=== PATIENT | female | born 1985 | race Caucasian/White ===

== ENCOUNTER → 2018-03-28 | Outpatient (CLI) | payer OTHER ==
--- NOTE | 2018-03-31 09:32 | USB ---
Reason for exam: clinical finding. History: Family history of breast cancer in maternal grandmother at age 60. Taking hormonal contraceptives beginning at age 16. Indicated problem(s): palpable abnormality in the left breast. Physical Findings: Nurse Summary: 2cm movable (nurse dw). US Breast BILAT Right complete breast ultrasound includes all four quadrants, the retroareolar region and axilla. Finding demonstrates no cystic or solid lesion seen. Left complete breast ultrasound includes all four quadrants, the retroareolar region and axilla. Finding demonstrates no cystic or solid lesion seen. No suspicious sonographic finding. Dense breast tissue is seen diffusely including the site of palpable abnormality. These results were verbally communicated with the patient and result sheet given to the patient on 03/28/18. ASSESSMENT: Negative, BI-RAD 1 RECOMMENDATION: Routine screening mammogram of both breasts at age 40. (41 or sooner if clinically indicated)
== END | disposition home or self-care (01) ==
LOC: RADUSWWP 15:28
PROVIDERS: ATTEND Internal Medicine
DX: N60.02 Solitary cyst of left breast (principal)

== ENCOUNTER → 2018-11-04 | Outpatient (CLI) | payer OTHER ==
--- NOTE | 2018-11-04 09:56 | US ---
EXAMINATION TYPE: US thyroid st tissue head/neck DATE OF EXAM: 11/04/2018 COMPARISON: MRI cervical spine December 10, 2014 CLINICAL HISTORY: E04.1 thyroid nodule, Right upper quadrant R10.11. thyroid nodule GLAND SIZE: Right Lobe: 5.4 x 1.9 x 2.0 cm Overall Parenchyma: homogenous Left Lobe: 5.1 x 1.4 x 1.6 cm Overall Parenchyma: homogeneous Isthmus Thickness: 0.2 cm NODULES RIGHT: # of nodules measured on right: 2 1. 1.9 X 1.1 x 1.1 cm mixed nodule at the mid pole with well-defined margins; . This nodule is gutierrez ler than wide and shows intranodular vascularity. Prior size: no prior 2. 0.8 X 0.6 x 0.6 cm mixed nodule at the lower pole with well-defined margins; . This nodule is wi bishop than tall and shows peripheral vascularity. Prior size: no prior LEFT: # of nodules measured on left: 0 ISTHMUS: # of nodules measured in the isthmus: 0 Bilateral neck scanned, no evidence of lymphadenopathy. There is homogeneous normal size thyroid with 1.9 cm mixed nodule seen in right thyroid laterally mid pole level and smaller mixed nodule seen posteriorly mid to lower pole level. Corresponding MRI 2015 only identifies 7 mm lateral T2 hyperintense nodule. IMPRESSION: A 1.9 cm mixed right thyroid nodule increased from 2015 MRI. Total points equals 5. (Taller greater t hook wide). TR4 lesion moderately suspicious. Recommendation: FNA advised.
--- NOTE | 2018-11-04 11:13 | US ---
EXAMINATION TYPE: US abdomen complete DATE OF EXAM: 11/04/2018 COMPARISON: NONE CLINICAL HISTORY: E04.1 thyroid nodule, Right upper quadrant R10.11. Nausea and vomiting after eating spicy foods, epigastric and RUQ pain EXAM MEASUREMENTS: Liver Length: 11.8 cm Gallbladder Wall: 0.2 cm CBD: 0.5 cm Spleen: 9.2 cm Right Kidney: 11.8 x 4.1 x 5.5 cm Left Kidney: 12.9 x 4.9 x 4.5 cm Pancreas: Obscured by bowel gas Liver: solid heterogenous hypoechoic area noted= 3.5 x 3.0 x 4.0cm Gallbladder: no evidence of stones Evidence for sonographic Baldwin's sign: no CBD: wnl Spleen: wnl Right Kidney: no evidence of hydronephrosis Left Kidney: wnl Upper IVC: wnl Abd Aorta: wnl The liver is homogenous. There is 3.5 cm slightly hypoechoic area possible lesion marked in the live r on image 29. The intrahepatic portion of the IVC and proximal abdominal aorta are within normal prince its. There is no evidence of cholelithiasis. Common bile duct is unremarkable. The visualized port ions of the pancreas are homogenous. The spleen is unremarkable. Kidneys are symmetric and free of hydronephrosis. No renal lesions are seen. IMPRESSION: No significant finding is seen to account for patient's symptoms of pain worse after eati ng. Suspect 3.5 cm solid lesion in liver. Liver protocol contrast-enhanced CT or MRI is advised to fu rther evaluate and characterize. Latter is preferred in younger patient.
== END | disposition home or self-care (01) ==
LOC: RADUSWWP 08:53
PROVIDERS: ATTEND Internal Medicine
DX: E04.1 Nontoxic single thyroid nodule (principal); R10.11 Right upper quadrant pain
CPT/HCPCS: 76536; 76700

== ENCOUNTER → 2018-11-24 | Outpatient (CLI) | payer OTHER ==
--- NOTE | 2018-11-24 15:59 | CT ---
EXAMINATION TYPE: CT abdomen pelvis w con DATE OF EXAM: 11/24/2018 HISTORY: VOMITING, LIVER LESION CT DLP: 462.2mGycm Automated Exposure Control for Dose Reduction was Utilized. CONTRAST: CT scan of the abdomen and pelvis is performed with IV Contrast, patient injected with 100 mL of Isov ue 300. COMPARISON: 11/04/2018 FINDINGS: LUNG BASES: No significant abnormality is appreciated. LIVER/GB: There is discontinuous nodular enhancement of an approximately 4.2 x 3.0 cm mass within seg ment 8 of the liver. On delayed imaging this demonstrates near complete fill-in most compatible with a benign hemangioma. Too small to accurately characterize possible subcentimeter hepatic cyst is seen within the inferior right hepatic lobe on series 3 image 32. Punctate similar 3 mm hypoattenuated le ft hepatic lobe lesion is seen on series 3 image 10. PANCREAS: No significant abnormality is seen. SPLEEN: No significant abnormality is seen. No splenomegaly. ADRENALS: No nodularity or thickening. KIDNEYS: Kidneys enhance and excrete symmetrically. BOWEL: Concentric thickening multifocally of the ascending colon likely represents colonic spasm. The colon is suboptimally evaluated given moderate moderate obtained colonic stool. The descending colon and sigmoid colon are nondistended. No dilated large or small bowel is seen. Appendix is partially a ir-filled and within normal limits. UTERUS/ADNEXA: No gross abnormality seen. LYMPH NODES: No greater than 1cm abdominal or pelvic lymph nodes are appreciated. OSSEOUS STRUCTURES: No significant abnormality is seen. IMPRESSION: 1. Hepatic lesion is most compatible with a benign hemangioma. Additional subcentimeter hepatic lesio ns are too small to accurately characterize but favored to represent cysts. 2. Multifocal concentric thickening of the ascending colon likely represent colonic spasm. Additional ly descending colonic nondistention is seen given the appearance of bowel wall thickening that could relate to chronic colitis. No pericolonic fat stranding. If there is clinical suspicion colonoscopy c ould further assess these findings.
== END | disposition home or self-care (01) ==
LOC: RADCTMAIN 13:35
PROVIDERS: ATTEND Internal Medicine
DX: D18.09 Hemangioma of other sites (principal); K76.9 Liver disease, unspecified; K63.89 Other specified diseases of intestine
CPT/HCPCS: 74177; Q9967

== ENCOUNTER 2020-01-12 16:01 | Emergency (ER) | payer OTHER ==
[2020-01-12] MEDS ORDERED: LIDOCAINE 5% PATCH TOPICAL STA (16:38)
[2020-01-12] MEDS ORDERED: KETOROLAC 30 MG/ML 1 ML VIAL IM STA (16:38)
--- NOTE | 2020-01-12 16:55 | XR ---
EXAMINATION TYPE: XR chest 2V DATE OF EXAM: 01/12/2020 COMPARISON: NONE HISTORY: Chest and right posterior rib pain after injury. TECHNIQUE: Frontal and lateral views of the chest are obtained. FINDINGS: Mild to moderate biapical pleural/parenchymal scarring. There is no focal air space opacity , pleural effusion, or pneumothorax seen. The cardiac silhouette size is within normal limits. The osseous structures are intact. IMPRESSION: No acute cardiopulmonary process.
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
[2020-01-12 18:09] VITALS: BP 125/78; PULSE 90; RESP 18; TEMP 98.2
== END 2020-01-12 18:08 | disposition home or self-care (01) ==
LOC: EC 16:01
DX: S20.211A Contusion of right front wall of thorax, initial encounter (principal); X58.XXXA Exposure to other specified factors, initial encounter; Y93.89 Activity, other specified
CPT/HCPCS: 71046; 96372; 99283; J1885